=== PATIENT | female | born 1990 | race Caucasian/White ===

== ENCOUNTER 2017-04-02 11:08 | Emergency (ER) | payer MEDICAID ==
[2017-04-02 11:35] VITALS: BP 136/85
--- NOTE | 2017-04-02 11:55 | RAD ---
Indication: Right thumb injury. 3 views of the right thumb demonstrates question of a small volar plate fracture proximal end of the distal phalanx. No other fractures are noted. IMPRESSION: There is suggestion of a fracture at the volar plate of the interphalangeal joint which is indeterminate.
--- NOTE | 2017-04-02 12:17 | UC ---
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 TODAY BRUISING, SWELLING AND PAIN WITH MOVEMENT. - History Of Current Complaint Chief Complaint: UCUpperExtremity Stated Complaint: THUMB INJURY Time Seen by Provider: 04/02/17 11:30 Hx Obtained From: Patient Hx Last Menstrual Period: one week ago Onset/Duration: Sudden Onset, Lasting Days, Still Present, Worse Since - TODAY Severity Initially: Mild Severity Currently: Moderate Character Of Pain: Dull, Aching Aggravating Factor(s): Movement, Flexion, Extension Alleviating: Nothing Associated Signs And Symptoms: Positive: Swelling, Bruising - Allergies/Home Medications Allergies/Adverse Reactions: Allergies Allergy/AdvReac Type Severity Reaction Status Date / Time Green Dye Allergy Rash Verified 04/02/17 11:27 Nickel Allergy Rash Verified 04/02/17 11:27 Penicillins [PCN] Allergy Rash Verified 04/02/17 11:27 CILLINS Allergy Unknown Rash Uncoded 04/02/17 11:27 seasonal Allergy Congestion Uncoded 04/02/17 11:27 PMH/Surg Hx/FS Hx/Imm Hx Previously Healthy: Yes Other History Of: Negative For: HIV, Hepatitis B, Hepatitis C, Anticoagulant Therapy - Surgical History Surgical History: Yes Surgery Procedure, Year, and Place: oral surgery 2010? - Family History Known Family History: Positive: None, Cardiac Disease - family hx of [place] before 50 years of age - Social History Occupation: Employed Full-time Lives: With Family Alcohol Use: Rare Alcohol Amount: 1 glass of wine - once a month Substance Use Type: Excessive Caffeine Substance Use Comment - Amount & Last Used: 2 cups of coffee/day, 3-4 pepsie's a day Smoking Status (MU): Never Smoked Tobacco Review of Systems Constitutional: Negative Skin: Bruising - RIGHT THUMB Eyes: Negative ENT: Negative Respiratory: Negative Cardiovascular: Negative Gastrointestinal: Negative Genitourinary: Negative Motor: Negative Musculoskeletal: Arthralgia, Myalgia Neurological: Negative Psychological: Negative All Other Systems Reviewed And Are Negative: Yes Physical Exam Triage Information Reviewed: Yes Appearance: Well-Appearing, No Pain Distress, Well-Nourished Vital Signs: Initial Vital Signs Temp 98.9 F 04/02/17 11:23 Pulse 90 04/02/17 11:23 Resp 12 04/02/17 11:23 BP 136/85 04/02/17 11:23 Pulse Ox 99 04/02/17 11:23 Vital Signs Reviewed: Yes Eye Exam: Normal ENT Exam: Normal Dental Exam: Normal Neck exam: Normal Neck: Positive: Supple, Nontender, No Lymphadenopathy Respiratory Exam: Normal Respiratory: Positive: Chest non-tender, Lungs clear, Normal breath sounds, No respiratory distress Cardiovascular Exam: Normal Cardiovascular: Positive: RRR, No Murmur, Pulses Normal Abdominal Exam: Normal Musculoskeletal: Positive: Strength Limited @ - RIGHT THUMB FLEXION, ROM Limited @ - RIGHT THUMB FLEXION, Edema @ - RIGHT THUMB Neurological Exam: Normal Psychological Exam: Normal Skin Exam: Normal Hand/Wrist Course/Dx - Differential Dx/Diagnosis Differential Diagnosis/HQI/PQRI: Fracture Provider Diagnoses: CLOSED RIGHT THUMB FRACTURE OF VOLAR PLATE OF PROXIMAL END OF DISTAL PHALANX Discharge - Discharge Plan Condition: Stable Disposition: HOME Patient Education Materials: Finger Fracture (ED) Forms: *Work Release Referrals: Gabe Boudreaux MD [Medical Doctor] - Tami Nieto NP [Primary Care Provider] -
== END 2017-04-02 12:16 | disposition home or self-care (01) ==
LOC: UCEAST 11:08
DX: S62.524A Nondisplaced fracture of distal phalanx of right thumb, initial encounter for closed fracture (principal); W19.XXXA Unspecified fall, initial encounter; Y93.51 Activity, roller skating (inline) and skateboarding; Y92.9 Unspecified place or not applicable; Z88.0 Allergy status to penicillin
CPT/HCPCS: 99212; G0463

== ENCOUNTER 2017-06-05 19:19 | Emergency (ER) | payer OTHER ==
[2017-06-05 19:49] VITALS: BP 125/73
--- NOTE | 2017-06-05 20:54 | UC ---
Skin Complaint HPI - HPI Summary HPI Summary: FOUR WEEKS OF ITCHY RASH SPREADING FROM FINGERS AND HANDS TO ELBOWS, TO NECK, TO ANKLES AND FEET, NOW TO TORSO. WORKS WITH UNHYGIENIC CARS PATIENTS. - History of Current Complaint Chief Complaint: UCSkin Time Seen by Provider: 06/05/17 19:49 Stated Complaint: RASH Hx Obtained From: Patient Hx Last Menstrual Period: 05/22/17 Onset/Duration: Gradual Onset, Lasting Weeks, Still Present, Worse Since - PROGRESSIVE Skin Exposure Onset/Duration: Weeks Ago Onset Severity: Mild Current Severity: Moderate Pain Intensity: 0 Pain Scale Used: 0-10 Numeric Location: Generalized Character: Pruritus, Redness, Raised Aggravating Factor(s): Nothing Alleviating Factor(s): Nothing Associated Signs & Symptoms: Positive: Negative Related History: Insect Bite/Sting, Possible Reaction to: Environmental Exposure - Allergy/Home Medications Allergies/Adverse Reactions: Allergies Allergy/AdvReac Type Severity Reaction Status Date / Time Green Dye Allergy Rash Verified 06/05/17 19:48 Nickel Allergy Rash Verified 06/05/17 19:48 Penicillins [PCN] Allergy Rash Verified 06/05/17 19:48 CILLINS Allergy Unknown Rash Uncoded 04/02/17 11:27 seasonal Allergy Congestion Uncoded 04/02/17 11:27 Home Medications: Home Medications Amphetamine/Dextroamph ER(NF) [Adderal XR (NF)] 10 mg PO DAILY 06/05/17 [ History Confirmed 06/05/17] Norethindrone (Contraceptive) [Norethindrone] 0.35 mg PO DAILY 06/05/17 [ History Confirmed 06/05/17] Review of Systems Constitutional: Negative Skin: Rash Eyes: Negative ENT: Negative Respiratory: Negative Cardiovascular: Negative Gastrointestinal: Negative Genitourinary: Negative Motor: Negative Neurovascular: Negative Musculoskeletal: Negative Neurological: Negative Psychological: Negative Is Patient Immunocompromised?: No All Other Systems Reviewed And Are Negative: Yes PMH/Surg Hx/FS Hx/Imm Hx Previously Healthy: Yes Other History Of: Negative For: HIV, Hepatitis B, Hepatitis C, Anticoagulant Therapy - Surgical History Surgical History: Yes Surgery Procedure, Year, and Place: oral surgery. TUBAL LIGATION - Family History Known Family History: Positive: None, Cardiac Disease - family hx of [place] before 50 years of age - Social History Occupation: Employed Full-time Lives: With Family Alcohol Use: None Alcohol Amount: 1 glass of wine - once a month Substance Use Type: None Substance Use Comment - Amount & Last Used: 2 cups of coffee/day, 3-4 pepsie's a day Smoking Status (MU): Never Smoked Tobacco Physical Exam Triage Information Reviewed: Yes Appearance: Well-Appearing, No Pain Distress, Well-Nourished Vital Signs: Initial Vital Signs Temp 97.7 F 06/05/17 19:43 Pulse 80 06/05/17 19:43 Resp 16 06/05/17 19:43 BP 125/73 06/05/17 19:43 Pulse Ox 100 06/05/17 19:43 Vital Signs Reviewed: Yes Eye Exam: Normal ENT Exam: Normal Dental Exam: Normal Neck exam: Normal Neck: Positive: Supple, Nontender Respiratory Exam: Normal Respiratory: Positive: Chest non-tender, Lungs clear, Normal breath sounds, No respiratory distress Cardiovascular Exam: Normal Cardiovascular: Positive: RRR Abdominal Exam: Normal Musculoskeletal Exam: Normal Neurological Exam: Normal Psychological Exam: Normal Skin: Positive: rashes Course/Dx - Differential Diagnoses - Skin Complaint Differential Diagnoses: Allergic Reaction, Cellulitis, Contact Dermatitis, Drug Rash, Eczema, MRSA, Poison [place], Poison [place], Scabies, Systemic Illness, Tinea, Urticaria - Diagnoses Provider Diagnoses: SCABIES Discharge - Discharge Plan Condition: Stable Disposition: HOME Prescriptions: Permethrin [Elimite] 5 % EX SEE INSTRUCTIONS #1 cre Patient Education Materials: Scabies (ED) Referrals: Ericka Liao [Medical Doctor] - Tami Nieto NP [Primary Care Provider] - Additional Instructions: BENADRYL 50mg PO TID FOR FIVE DAYS
== END 2017-06-05 20:36 | disposition home or self-care (01) ==
LOC: UCEAST 19:19
DX: B86 Scabies (principal)
CPT/HCPCS: 99212; G0463

== ENCOUNTER 2017-11-12 13:04 | Emergency (ER) | payer OTHER ==
[2017-11-12 13:17] VITALS: BP 127/87
--- NOTE | 2017-11-12 13:32 | ED ---
Back Pain - HPI Summary HPI Summary: 27F presents with back pain for the past couple days. She states she slept wrong and developed the pain. She fell asleep in a chair and developed pain afterwards. She denies any numbness or tingling. She denies any weakness. She is able to ambulate. She has been taking Tylenol and placing icy on it without relief. She does have occasional back pain but never in this location. She denies any known injury. - History of Current Complaint Chief Complaint: UCBackPain Stated Complaint: BACK PAIN Time Seen by Provider: 11/12/17 13:23 Hx Last Menstrual Period: 10/31/17 Pain Intensity: 6 - Allergies/Home Medications Allergies/Adverse Reactions: Allergies Allergy/AdvReac Type Severity Reaction Status Date / Time nickel Allergy Rash Verified 11/12/17 13:19 Penicillins Allergy Rash Verified 11/12/17 13:19 green dye Allergy Rash Uncoded 11/12/17 13:19 seasonal Allergy Congestion Uncoded 11/12/17 13:19 Home Medications: Home Medications Acetaminophen TAB* [Tylenol TAB*] 1,000 mg PO ONCE 11/12/17 [History Confirmed 11/12/17] Nitrofurantoin Macrocrystals* [Macrodantin*] 1 tab PO BID 11/12/17 [History Confirmed 11/12/17] PMH/Surg Hx/FS Hx/Imm Hx Endocrine/Hematology History: Denies: Hx Anticoagulant Therapy, Hx Diabetes, Hx Thyroid Disease Cardiovascular History: Reports: 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, often causes chest pain/pressure, Other Cardiovascular Problems/Disorders - PROLAPSED MITRO VALVE Denies: Hx Congestive Heart Failure, Hx Deep Vein Thrombosis, Hx Hypertension , Hx Myocardial Infarction, Hx Pacemaker/ICD Respiratory History: Reports: Hx Asthma - cold air induced asthma Denies: Hx Chronic Obstructive Pulmonary Disease (COPD), Hx Lung Cancer GI History: Denies: Hx Gall Bladder Disease, Hx Gastrointestinal Bleed, Hx Ulcer, Hx Urosepsis History: Reports: Other Problems/Disorders - many UTI's late teens and early 20's Denies: Hx Kidney Stones, Hx Renal Disease Musculoskeletal History: Reports: Other Musculoskeletal History - reports hip pain since childbirth in 2013 Sensory History: Denies: Hx Contacts or Glasses, Hx Hearing Aid Opthamlomology History: Denies: Hx Contacts or Glasses Neurological History: Reports: Hx Migraine - uses OTC pain control, or goes to ER for Toradol Denies: Hx Dementia, Hx Seizures, Hx Transient Ischemic Attacks (TIA) Psychiatric History: Denies: Hx Anxiety, Hx Depression, Hx Schizophrenia, Hx Bipolar Disorder - Surgical History Surgery Procedure, Year, and Place: oral surgery. TUBAL LIGATION Hx Anesthesia Reactions: No Infectious Disease History: No Infectious Disease History: Denies: Hx Clostridium Difficile, Hx Hepatitis, Hx Human Immunodeficiency Virus (HIV), Hx of Known/Suspected MRSA, Hx Shingles, Hx Tuberculosis, History Other Infectious Disease, Traveled Outside the [place] in Last 30 Days - Family History Known Family History: Positive: None, Cardiac Disease - family hx of [place] before 50 years of age - Social History Alcohol Use: Rare Alcohol Amount: 1 glass of wine - once a month Substance Use Type: Reports: None Substance Use Comment - Amount & Last Used: 2 cups of coffee/day, 3-4 pepsie's a day Smoking Status (MU): Never Smoked Tobacco Review of Systems Negative: Fever Negative: Chest Pain Negative: Shortness Of Breath Positive: Myalgia - back pain All Other Systems Reviewed And Are Negative: Yes Physical Exam Triage Information Reviewed: Yes Vital Signs On Initial Exam: Initial Vitals Temp Pulse Resp BP Pulse Ox 98.4 F 96 12 127/87 99 11/12/17 13:14 11/12/17 13:14 11/12/17 13:14 11/12/17 13:14 11/12/17 13:14 Vital Signs Reviewed: Yes Appearance: Positive: Well-Appearing Skin: Positive: Warm, Dry Head/Face: Positive: Normal Head/Face Inspection Eyes: Positive: Normal, Conjunctiva Clear Respiratory/Lung Sounds: Positive: Clear to Auscultation, Breath Sounds Present Cardiovascular: Positive: Normal, RRR Abdomen Description: Positive: Nontender, Soft Bowel Sounds: Positive: Present Musculoskeletal: Positive: Limited @ - back due to pain, Other - tenderness left side of back at L1, no midline tenderness, neg SLR, sensation grossly intact Neurological: Positive: Reflexes Intact - patella Psychiatric: Positive: Normal Diagnostics - Vital Signs Vital Signs Temp Pulse Resp BP Pulse Ox 11/12/17 13:14 98.4 F 96 12 127/87 99 - Laboratory Lab Statement: Any lab studies that have been ordered have been reviewed, and results considered in the medical decision making process. Back Pain Course/Dx - Course Course Of Treatment: 27F presents with back pain for the past couple days. She states she slept wrong and developed the pain. She fell asleep in a chair and developed pain afterwards. She denies any numbness or tingling. She denies any weakness. She is able to ambulate. She has been taking Tylenol and placing icy on it without relief. She does have occasional back pain but never in this location. She denies any known injury. on exam has tenderness left side of back, no midline tenderness, neurovascular intact. normal gait. will treat with muscle relaxer, steriod, and lidocaine patch. will have follow up with primary as blood pressure is pre-htn. patient understand and agrees with plan. - Diagnoses Differential Diagnosis/HQI/PQRI: Positive: Herniated Disc, Strain, Sprain Provider Diagnoses: Back pain Discharge - Sign-Out/Discharge Documenting (check all that apply): Discharge - Discharge Plan Condition: Good Disposition: HOME Prescriptions: Cyclobenzaprine TAB* [Flexeril 10 MG TAB*] 10 mg PO TID PRN #21 tab PRN Reason: Pain Lidocaine PATCH 5%* [Lidoderm 5% Patch*] 1 patch TRANSDERM DAILY #5 patch methylPREDNISolone [Medrol Dosepak 4 MG*] 4 mg PO .SEE CHELSEY INSTRUCTION #1 packet Patient Education Materials: Back Pain (ED) Forms: *Work Release Referrals: Tami Nieto NP [Primary Care Provider] - Additional Instructions: Follow directions on package for Medrol pack Take muscle relaxers three times a day Apply lidocaine patches to area for up to 12 hours in one 24 hour period Use ibuprofen or Tylenol for pain every 6 hours ice/heat area, move as much as possible Follow up with primary within 5 days Return to ED if develop any new or worsening symptoms - Billing Disposition and Condition Condition: GOOD Disposition: HOME
== END 2017-11-12 13:49 | disposition home or self-care (01) ==
LOC: UCEAST 13:04
DX: M54.9 Dorsalgia, unspecified (principal); I34.1 Nonrheumatic mitral (valve) prolapse; J45.909 Unspecified asthma, uncomplicated; Z87.440 Personal history of urinary (tract) infections; G43.909 Migraine, unspecified, not intractable, without status migrainosus; Z88.0 Allergy status to penicillin
CPT/HCPCS: 99212; G0463

== ENCOUNTER 2017-12-16 18:45 | Emergency (ER) | payer OTHER ==
[2017-12-16] MEDS ORDERED: Hydrocodone/Acetamin 10/325 1 TAB PO PRN (19:30)
[2017-12-16] MEDS ORDERED: Nitrofurantoin Macrocrystals* 50 MG CAP PO ONE (19:31)
[2017-12-16] MEDS ORDERED: HYDROcodone/ACETAMIN 5-325 MG* 1 TAB PO ONE (19:34)
[2017-12-16] MEDS ORDERED: Ondansetron ODT TAB* 4 MG PO ONE (19:36)
[2017-12-16] MEDS ORDERED: Ondansetron ODT TAB* 4 MG ONE (19:38)
--- NOTE | 2017-12-16 19:43 | UC ---
Complaint Female HPI - HPI Summary HPI Summary: c/o right flank pain radiating to her abdomen and pelvic area starting earlier today, with bloody urine and burning sensation when voiding. States pain has been migrating downward. Denies fever or previous history of urolithiasis - History Of Current Complaint Chief Complaint: UCGU Stated Complaint: BLOOD IN URINE, PAIN W/ CHILLS Time Seen by Provider: 12/16/17 18:49 Hx Obtained From: Patient Hx Last Menstrual Period: [id number] ?: No Onset/Duration: Sudden Onset, Lasting Hours Timing: Constant Severity Initially: Severe Severity Currently: Severe Pain Intensity: 9 Character: Burning, Tearing, Colicy Aggravating Factor(s): Movement, Urination Alleviating Factor(s): Position Associated Signs And Symptoms: Positive: Back Pain, Nausea - Risk Factors Ectopic Risk Factor: Negative - Allergies/Home Medications Allergies/Adverse Reactions: Allergies Allergy/AdvReac Type Severity Reaction Status Date / Time nickel Allergy Rash Verified 12/16/17 19:01 Penicillins Allergy Rash Verified 12/16/17 19:01 seasonal Allergy Congestion Uncoded 12/16/17 19:01 PMH/Surg Hx/FS Hx/Imm Hx Previously Healthy: Yes Other History Of: Negative For: HIV, Hepatitis B, Hepatitis C, Anticoagulant Therapy - Surgical History Surgical History: Yes Surgery Procedure, Year, and Place: oral surgery. TUBAL LIGATION - Family History Known Family History: Positive: None, Cardiac Disease - family hx of [place] before 50 years of age - Social History Alcohol Use: Rare Alcohol Amount: 1 glass of wine - once a month Substance Use Type: None Substance Use Comment - Amount & Last Used: 2 cups of coffee/day, 3-4 pepsie's a day Smoking Status (MU): Never Smoked Tobacco Review of Systems Constitutional: Negative Genitourinary: Dysuria, Hematuria, Frequency All Other Systems Reviewed And Are Negative: Yes Physical Exam Triage Information Reviewed: Yes Appearance: Pain Distress, Obese Vital Signs: Initial Vital Signs Temp 97.9 F 12/16/17 18:53 Pulse 108 12/16/17 18:53 Resp 18 12/16/17 18:53 BP 126/81 12/16/17 18:53 Pulse Ox 100 12/16/17 18:53 Vital Signs Reviewed: Yes Eyes: Positive: Conjunctiva Clear ENT: Positive: Hearing grossly normal Neck: Positive: Supple, Nontender, No Lymphadenopathy Respiratory: Positive: Chest non-tender, Lungs clear, Normal breath sounds, No respiratory distress Cardiovascular: Positive: RRR, No Murmur, Pulses Normal, Brisk Capillary Refill Abdomen Description: Positive: No Organomegaly, Soft, CVA Tenderness (R) Bowel Sounds: Positive: Present Complaint Female Dx - Course Course Of Treatment: Recommendation to go [place] [facility] [place] abdomen and pelvis to r/o urolithiasis right side. Contacted [facility] [place] for arrival of [place]. Patient tolerated oral fluids after zofran and pain is controlled with one dose of narco. Prescription of macrobid and tamsulosin sent to pharmacy. - Differential Dx/Diagnosis Provider Diagnoses: CLinical urolithiasis Discharge - Sign-Out/Discharge Documenting (check all that apply): Discharge/Admit/Transfer - Discharge Plan Condition: Improved Disposition: HOME Prescriptions: Nitrofurantoin Macrocrystals* [Macrodantin 100 mg*] 100 mg PO BID 7 Days #14 cap Tamsulosin CAP* [Flomax CAP*] 0.4 mg PO BEDTIME #10 cap Referrals: Tami Nieto NP [Primary Care Provider] - - Billing Disposition and Condition Condition: IMPROVED Disposition: HOME
[2017-12-16 20:31] VITALS: BP 132/80
== END 2017-12-16 20:42 | disposition home or self-care (01) ==
LOC: UCEAST 18:45
DX: N20.9 Urinary calculus, unspecified (principal); M54.5 Low back pain; R11.0 Nausea; R31.9 Hematuria, unspecified; R30.0 Dysuria; R35.0 Frequency of micturition; Z88.0 Allergy status to penicillin
CPT/HCPCS: 81003; 87086; 99212; A9270-GY; G0463

== ENCOUNTER 2017-12-16 20:57 | Emergency (ER) | payer OTHER ==
[2017-12-16] MEDS ORDERED: NS 0.9% 1000 ML* 1,000 ML IV ONE (22:56)
[2017-12-16 22:58] LABS: ABS Basophils 0.1 10^3/ul (0-0.2); ABS Eosinophils 0 10^3/ul (0-0.6); ABS Lymphocytes 2.7 10^3/ul (1.0-4.8); ABS Monocytes 1.2 10^3/ul (0-0.8); ABS Neutrophils 10.8 10^3/ul (1.5-7.7); ABS Nucleated RBC 0 10^3/ul; Eosinophil % 0.2 % (0-6); Hematocrit 41 % (35-47); Hemoglobin 14.2 g/dl (12.0-16.0); Mean Corpuscular HGB Conc 35 g/dl (31-36); Mean Corpuscular Hemoglobin 30 pg (27-31); Mean Corpuscular Volume 87 fL (80-97); Mean Platelet Volume 8.5 um3 (7.4-10.4); Nucleated Red Blood Cells % 0; Platelet Count 172 10^3/ul (150-450); Red Cell Distribution Width 13 % (10.5-15); White Blood Count 14.8 10^3/ul (3.5-10.8)
[2017-12-16 23:17] LABS: Urine Appearance Cloudy; Urine Blood 3+ (Negative); Urine Color Amber; Urine Ketones Trace (Negative); Urine Protein 3+(>=500 mg/dL) (Negative); Urine Specific Gravity 1.031 (1.010-1.030); Urine Urobilinogen Positive (Negative)
--- NOTE | 2017-12-16 23:22 | ED ---
Abdominal Pain/Female - HPI Summary HPI Summary: Patient sent from to ED Complains of right upper quadrant pain, right side pain, suprapubic pain, nausea, increased urinary frequency, increased urinary urge, hematuria, dizziness, chills starting this morning. Patient given hydrocodone, Zofran at . Denies trauma, fever, CP, SOB, cough, sore throat, V /D, vaginal symptoms, change in BM. Denies history of kidney stones. Medical history is endometriosis, PCO as, MVP, asthma. Abdominal/pelvic surgical history is BTL. LMP 12/01 - History of Current Complaint Chief Complaint: EDUrogenitalProblems Stated Complaint: RT FLANK PAIN Time Seen by Provider: 12/16/17 22:23 Hx Obtained From: Patient Hx Last Menstrual Period: [id number] Onset/Duration: Sudden Onset, Lasting Hours Timing: Constant Severity Initially: Mild Severity Currently: Moderate Pain Intensity: 6 Pain Scale Used: 0-10 Numeric Location: Discrete At: RUQ, Suprapubic Radiates: No Radiates to: Flank Character: Sharp Aggravating Factor(s): Nothing Alleviating Factor(s): Nothing Associated Signs and Symptoms: Positive: Dizzy, Back Pain, Urinary Symptoms, Nausea Allergies/Adverse Reactions: Allergies Allergy/AdvReac Type Severity Reaction Status Date / Time nickel Allergy Rash Verified 12/16/17 21:04 Penicillins Allergy Rash Verified 12/16/17 21:04 seasonal Allergy Congestion Uncoded 12/16/17 21:04 PMH/Surg Hx/FS Hx/Imm Hx Endocrine/Hematology History: Denies: Hx Anticoagulant Therapy, Hx Diabetes, Hx Thyroid Disease Cardiovascular History: Reports: 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, often causes chest pain/pressure, Other Cardiovascular Problems/Disorders - PROLAPSED MITRO VALVE Denies: Hx Congestive Heart Failure, Hx Deep Vein Thrombosis, Hx Hypertension , Hx Myocardial Infarction, Hx Pacemaker/ICD Respiratory History: Reports: Hx Asthma - cold air induced asthma Denies: Hx Chronic Obstructive Pulmonary Disease (COPD), Hx Lung Cancer GI History: Denies: Hx Gall Bladder Disease, Hx Gastrointestinal Bleed, Hx Ulcer, Hx Urosepsis History: Reports: Other Problems/Disorders - many UTI's late teens and early 20's Denies: Hx Kidney Stones, Hx Renal Disease Musculoskeletal History: Reports: Other Musculoskeletal History - reports hip pain since childbirth in 2013 Sensory History: Denies: Hx Contacts or Glasses, Hx Hearing Aid Opthamlomology History: Denies: Hx Contacts or Glasses Neurological History: Reports: Hx Migraine - uses OTC pain control, or goes to ER for Toradol Denies: Hx Dementia, Hx Seizures, Hx Transient Ischemic Attacks (TIA) Psychiatric History: Denies: Hx Anxiety, Hx Depression, Hx Schizophrenia, Hx Bipolar Disorder - Surgical History Surgery Procedure, Year, and Place: oral surgery. TUBAL LIGATION Hx Anesthesia Reactions: No Infectious Disease History: No Infectious Disease History: Denies: Hx Clostridium Difficile, Hx Hepatitis, Hx Human Immunodeficiency Virus (HIV), Hx of Known/Suspected MRSA, Hx Shingles, Hx Tuberculosis, History Other Infectious Disease, Traveled Outside the [place] in Last 30 Days - Family History Known Family History: Positive: None, Cardiac Disease - family hx of [place] before 50 years of age - Social History Alcohol Use: Rare Alcohol Amount: 1 glass of wine - once a month Substance Use Type: Reports: None Substance Use Comment - Amount & Last Used: 2 cups of coffee/day, 3-4 pepsie's a day Smoking Status (MU): Never Smoked Tobacco Review of Systems Constitutional: Negative Eyes: Negative ENT: Negative Cardiovascular: Negative Respiratory: Negative Positive: Abdominal Pain, Nausea Positive: burning, dysuria, frequency, flank pain, hematuria, pain, urgency Musculoskeletal: Negative Skin: Negative Neurological: Negative Psychological: Normal All Other Systems Reviewed And Are Negative: Yes Physical Exam - Summary Physical Exam Summary: Abdomen most tender suprapubically. Negative Arriaga's, negative McBurney's point. Positive CVA tenderness right side Triage Information Reviewed: Yes Vital Signs On Initial Exam: Initial Vitals Temp Pulse Resp BP Pulse Ox 97.8 F 83 18 102/79 97 12/16/17 20:59 12/16/17 20:59 12/16/17 20:59 12/16/17 20:59 12/16/17 20:59 Vital Signs Reviewed: Yes Appearance: Positive: Well-Appearing Skin: Positive: Warm Head/Face: Positive: Normal Head/Face Inspection Eyes: Positive: Normal Neck: Positive: Supple Respiratory/Lung Sounds: Positive: Clear to Auscultation Cardiovascular: Positive: Normal Abdomen Description: Positive: CVA Tenderness (R). Negative: McBurney's Point Tenderness Musculoskeletal: Positive: Normal Neurological: Positive: Normal Psychiatric: Positive: Normal AVPU Assessment: Alert - [place] Coma Scale Best Eye Response: 4 - Spontaneous Best Motor Response: 6 - Obeys Commands Best Verbal Response: 5 - Oriented Coma Scale Total: 15 Diagnostics - Vital Signs Vital Signs Temp Pulse Resp BP Pulse Ox 12/16/17 20:59 97.8 F 83 18 102/79 97 - Laboratory Lab Results: Lab Results 12/16/17 12/16/17 Range/Units 22:48 22:55 WBC 14.8 H (3.5-10.8) 10^3/ul RBC 4.70 (4.0-5.4) 10^6/ul Hgb 14.2 (12.0-16.0) g/dl Hct 41 (35-47) % MCV 87 (80-97) fL MCH 30 (27-31) pg MCHC 35 (31-36) g/dl RDW 13 (10.5-15) % Plt Count 172 (150-450) 10^3/ul MPV 8.5 (7.4-10.4) um3 Neut % (Auto) 73.2 (38-83) % Lymph % (Auto) 18.0 L (25-47) % Sanders % (Auto) 8.2 H (0-7) % Eos % (Auto) 0.2 (0-6) % Baso % (Auto) 0.4 (0-2) % Absolute Neuts (auto) 10.8 H (1.5-7.7) 10^3/ul Absolute Lymphs (auto) 2.7 (1.0-4.8) 10^3/ul Absolute Monos (auto) 1.2 H (0-0.8) 10^3/ul Absolute Eos (auto) 0 (0-0.6) 10^3/ul Absolute Basos (auto) 0.1 (0-0.2) 10^3/ul Absolute Nucleated RBC 0 10^3/ul Nucleated RBC % 0 Urine Color Olga Lidia Urine Appearance Cloudy Urine pH 5.0 (5-9) Ur Specific [place] 1.031 H (1.010-1.030) Urine Protein 3+(>=500 mg/dl) A (Negative) Urine Ketones Trace A (Negative) Urine Blood 3+ A (Negative) Urine Nitrate Negative (Negative) Urine Bilirubin Negative (Negative) Urine Urobilinogen Positive A (Negative) Ur Leukocyte Esterase 2+ A (Negative) Urine WBC (Auto) 3+(>20/hpf) A (Absent) Urine RBC (Auto) 3+(>10/hpf) A (Absent) Ur Squamous Epith Cells Present A (Absent) Urine Bacteria Absent (Absent) Urine Glucose Negative (Negative) Result Diagrams: 12/16/17 22:48 12/16/17 22:48 Lab Statement: Any lab studies that have been ordered have been reviewed, and results considered in the medical decision making process. - CT ct ab/pel w/o CT Interpretation: No Acute Changes CT Interpretation Completed By: Radiologist Abdominal Pain Fem Course/Dx - Diagnoses Provider Diagnoses: UTI (urinary tract infection) Discharge - Sign-Out/Discharge Documenting (check all that apply): Discharge/Admit/Transfer - Discharge Plan Condition: Stable Disposition: HOME Prescriptions: Ciprofloxacin HCl [Cipro] 500 mg PO BID 10 Days #20 tablet Patient Education Materials: Urinary Tract Infection in Women (ED) Referrals: Tami Nieto NP [Primary Care Provider] - Additional Instructions: Take Tylenol with ibuprofen for pain. Take antibiotics as directed. Follow-up with primary care. Return to the ED for any new or worsening symptoms - Billing Disposition and Condition Condition: STABLE Disposition: HOME
[2017-12-17] MEDS ORDERED: cefTRIAXone(*) 2 GM in NS 0.9% 100 ML* 100 ML IVPB ONE (00:01)
[2017-12-17 01:39] VITALS: BP 112/76
--- NOTE | 2017-12-17 08:10 | RAD ---
INDICATION: Abdominal pain. COMPARISON: There are no prior studies available for comparison. TECHNIQUE: A CT scan of the abdomen and pelvis was performed without intravenous or oral contrast. Contiguous axial sections were obtained from the lung bases through the symphysis pubis. Images were reconstructed in the coronal and sagittal planes. FINDINGS: The lung bases are clear. No pleural effusion is present. The liver and spleen are within normal limits in size without significant focal abnormality on this noncontrast study. No calcified gallstones are seen. The pancreas appears to be within normal limits in size. The adrenal glands and kidneys are normal in size. No renal calculi or hydronephrosis is seen. There is mild diffuse bladder wall thickening and interstitial stranding around the urinary bladder suggestive of cystitis. The aorta is normal in caliber without significant calcific plaque. No significant enlarged retroperitoneal lymph nodes are seen. The stomach, small and large bowel appear nondistended. The appendix is within normal limits. There is mild descending and sigmoid diverticulosis without evidence for diverticulitis. There is a small periumbilical hernia containing fat. The uterus is retroverted and normal in size. There are bilateral tubal ligation clips present. No free intraperitoneal air or fluid is seen. No significant focal osseous abnormality is seen. The results of this examination were called to Dr. Joyner. IMPRESSION: MILD BLADDER WALL THICKENING AND AN ADJACENT INTERSTITIAL STRANDING SUGGESTIVE OF CYSTITIS.
== END 2017-12-17 01:39 | disposition home or self-care (01) ==
LOC: ED 20:57
DX: N39.0 Urinary tract infection, site not specified (principal); R30.0 Dysuria; R10.84 Generalized abdominal pain; R42 Dizziness and giddiness; M54.9 Dorsalgia, unspecified
CPT/HCPCS: 36415; 74176; 80053; 81003; 81015; 83605; 83690; 84702; 85025; 96365; 99284; J0696

== ENCOUNTER 2019-02-04 10:46 | Emergency (ER) | payer BC, OTHER ==
[2019-02-04 12:36] LABS: Rapid Strep Molecular Negative (Negative)
[2019-02-04] MEDS ORDERED: NS 0.9% 1000 ML** 1,000 ML IV ONE (12:51)
[2019-02-04] MEDS ORDERED: Ketorolac INJ* 30 MG/ML 1 ML VIAL IV PUSH ONE (12:51)
[2019-02-04] MEDS ORDERED: Clindamycin 600 MG/D5W BAG(*) 600 MG/50 ML BAG IV ONE (12:51)
[2019-02-04] MEDS ORDERED: Dexamethasone IV* 4 MG/ML 5 ML VIAL (20 MG) IVPB ONE (12:51)
[2019-02-04] MEDS ORDERED: Clindamycin 600 MG IVPREMIX(* 600 MG/50 ML SDV IV ONE (13:00)
--- NOTE | 2019-02-04 13:00 | ED ---
Throat Pain/Nasal Congestion - HPI Summary HPI Summary: Patient is a 28-year-old female presenting to the ED with Pain, exudates and swelling 4 days. She states the symptoms have been worsening. She is a history of strep throat, she states approximately 8-10 times in her life. She' s never been offered a tonsillectomy. She endorses fevers, sweats, chills. Denies any abdominal pain. Denies any rhinorrhea or ear pain. She denies any recent sick contacts. No history of peritonsillar abscess. Patient is otherwise healthy, nonsmoker. - History of Current Complaint Chief Complaint: EDThroatPain Time Seen by Provider: 02/04/19 11:48 Hx Obtained From: Patient Onset/Duration: Sudden Onset Severity: Moderate Associated Signs And Symptoms: Positive: Dysphagia. Negative: Drooling, Hoarseness, Sinus Discomfort, Nasal Discharge - Epiglottits Risk Factors Epiglottis Risk Factors: Negative - Allergies/Home Medications Allergies/Adverse Reactions: Allergies Allergy/AdvReac Type Severity Reaction Status Date / Time nickel Allergy Rash Verified 02/04/19 10:51 Penicillins Allergy Rash Verified 02/04/19 10:51 seasonal Allergy Congestion Uncoded 02/04/19 10:51 Home Medications: Home Medications Clindamycin Cap(NF) [Clindamycin Cap 300 mg Cap(NF)] 1 tab PO TID 02/04/19 [ History Confirmed 02/04/19] PMH/Surg Hx/FS Hx/Imm Hx Previously Healthy: Yes Endocrine/Hematology History: Denies: Hx Anticoagulant Therapy, Hx Diabetes, Hx Thyroid Disease Cardiovascular History: Reports: 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, often causes chest pain/pressure, Other Cardiovascular Problems/Disorders - PROLAPSED MITRO VALVE Denies: Hx Congestive Heart Failure, Hx Deep Vein Thrombosis, Hx Hypertension , Hx Myocardial Infarction, Hx Pacemaker/ICD Respiratory History: Reports: Hx Asthma - cold air induced asthma Denies: Hx Chronic Obstructive Pulmonary Disease (COPD), Hx Lung Cancer GI History: Denies: Hx Gall Bladder Disease, Hx Gastrointestinal Bleed, Hx Ulcer, Hx Urosepsis History: Reports: Other Problems/Disorders - many UTI's late teens and early 20's Denies: Hx Kidney Stones, Hx Renal Disease Musculoskeletal History: Reports: Other Musculoskeletal History - reports hip pain since childbirth in 2013 Sensory History: Denies: Hx Contacts or Glasses, Hx Hearing Aid Opthamlomology History: Denies: Hx Contacts or Glasses Neurological History: Reports: Hx Migraine - uses OTC pain control, or goes to ER for Toradol Denies: Hx Dementia, Hx Seizures, Hx Transient Ischemic Attacks (TIA) Psychiatric History: Denies: Hx Anxiety, Hx Depression, Hx Schizophrenia, Hx Bipolar Disorder - Surgical History Surgery Procedure, Year, and Place: oral surgery. TUBAL LIGATION Hx Anesthesia Reactions: No - Immunization History Hx Pertussis Vaccination: No Immunizations Up to Date: Yes Infectious Disease History: No Infectious Disease History: Denies: Hx Clostridium Difficile, Hx Hepatitis, Hx Human Immunodeficiency Virus (HIV), Hx of Known/Suspected MRSA, Hx Shingles, Hx Tuberculosis, History Other Infectious Disease, Traveled Outside the [place] in Last 30 Days - Family History Known Family History: Positive: None, Cardiac Disease - family hx of [place] before 50 years of age - Social History Occupation: Employed Full-time Lives: With Family Alcohol Use: Rare Alcohol Amount: 1 glass of wine - once a month Hx Substance Use: No Substance Use Type: Reports: None Substance Use Comment - Amount & Last Used: 2 cups of coffee/day, 3-4 pepsie's a day Smoking Status (MU): Never Smoked Tobacco Review of Systems Negative: Fever, Chills, Fatigue, Skin Diaphoresis Positive: Sore Throat. Negative: Dental Pain, Ear Ache, Nasal Discharge Negative: Palpitations, Chest Pain Negative: Shortness Of Breath, Cough Negative: Arthralgia, Myalgia Skin: Negative Neurological: Negative All Other Systems Reviewed And Are Negative: Yes Physical Exam Triage Information Reviewed: Yes Vital Signs On Initial Exam: Initial Vitals Temp Pulse Resp BP Pulse Ox 97.7 F 100 17 132/94 99 02/04/19 10:48 02/04/19 10:48 02/04/19 10:48 02/04/19 10:48 02/04/19 10:48 Vital Signs Reviewed: Yes Appearance: Positive: Well-Appearing, Well-Nourished Skin: Positive: Warm, Skin Color Reflects Adequate Perfusion Head/Face: Positive: Normal Head/Face Inspection Eyes: Positive: EOMI, Conjunctiva Clear ENT: Positive: Pharyngeal erythema, Tonsillar swelling, Tonsillar exudate, Uvula midline. Negative: Nasal drainage, Trismus, Muffled voice, Hoarse voice, Dental tenderness, Sinus tenderness Neck: Positive: Supple, No Lymphadenopathy Respiratory/Lung Sounds: Positive: Clear to Auscultation, Breath Sounds Present Cardiovascular: Positive: RRR, Pulses are Symmetrical in both Upper and Lower Extremities Musculoskeletal: Positive: Strength/ROM Intact Neurological: Positive: Sensory/Motor Intact, Alert, Oriented to Person Place, Time Psychiatric: Positive: Affect/Mood Appropriate Diagnostics - Vital Signs Vital Signs Temp Pulse Resp BP Pulse Ox 02/04/19 10:48 97.7 F 100 17 132/94 99 - Laboratory Lab Results: Lab Results 02/04/19 Range/Units 12:04 Group A Strep Rapid Negative (Negative) Result Diagrams: 02/04/19 13:11 02/04/19 13:11 Lab Statement: Any lab studies that have been ordered have been reviewed, and results considered in the medical decision making process. EENT Course/Dx - Course Course Of Treatment: On physical examination, pharyngeal erythema with bilateral enlarged tonsillar and tonsillar exudates. Airway patent. Uvula midline. No evidence of a peritonsillar abscess. No evidence of retropharyngeal abscess. No muffled voice, drooling or stridor noted. Patient' s immunizations are up-to-date. Strep swab obtained yesterday and negative, this was repeated today and was also negative. Patient endorses difficulty with swallowing and pain with swallowing. She is controlling her secretions well. Patient is given 10 mg Decadron, 1 L normal saline, 600 mg IV clindamycin , 30 mg IV Toradol. This was good improvement. Patient states she feels her symptoms have improved and is tolerating swallowing much better. She will remain on her 300 mg 3 times daily 10 days dose of clindamycin given to her yesterday by PCP. - Differential Diagnoses Differential Diagnoses: Tonsilitis, Other - Pharyngitis, tonsillitis, peritonsillar abscess, bacterial vs. viral tonsillitis - Diagnoses Provider Diagnoses: Tonsillitis Discharge - Sign-Out/Discharge Documenting (check all that apply): Patient Departure Patient Received Moderate/Deep Sedation with Procedure: No - Discharge Plan Condition: Stable Disposition: HOME Prescriptions: Ketorolac TAB * [Toradol TAB *] 10 mg PO Q6H #16 tab predniSONE TAB* [Deltasone TAB*] 50 mg PO DAILY #4 tab MDD 1 Patient Education Materials: Tonsillitis (ED) Forms: *Work Release Referrals: Aroldo Merchant MD [Medical Doctor] - Tami Nieto NP [Primary Care Provider] - Additional Instructions: Continue taking clindamycin as prescribed Prednisone once daily in the morning 4 days, start this medication tomorrow Toradol 4 times daily for any discomfort and inflammation Your next dose of Toradol is at 5pm - Billing Disposition and Condition Condition: STABLE Disposition: Home
[2019-02-04 13:18] LABS: ABS Lymphocytes 1.1 10^3/ul (1.0-4.8); ABS Neutrophils 6.3 10^3/ul (1.5-7.7); Hematocrit 41 % (35-47); Hemoglobin 14.3 g/dL (12.0-16.0); Lymphocyte % 12.9 %; Mean Corpuscular HGB Conc 35 g/dL (31-36); Mean Corpuscular Hemoglobin 30 pg (27-31); Mean Corpuscular Volume 88 fL (80-97); Mean Platelet Volume 7.4 fL (7.4-10.4); Platelet Count 144 10^3/uL (150-450); Red Cell Distribution Width 13 % (10-15); White Blood Count 8.3 10^3/uL (3.5-10.8)
[2019-02-04 13:36] LABS: Albumin 3.9 g/dL (3.2-5.2); Albumin/Globulin Ratio 1.1 (1-3); BUN/Creatinine Ratio 14.5 (8-20); C Reactive Protein 138.02 mg/L (<8.01); Calcium 9.1 mg/dL (8.6-10.3); EGFR African American 137.7 (>60); EGFR Non-African American 113.8 (>60); Globulin 3.6 g/dL (2-4); Potassium 3.8 mmol/L (3.5-5.0); Total Bilirubin 0.6 mg/dL (0.2-1.0); Total Protein 7.5 g/dL (6.4-8.9)
[2019-02-04 14:45] VITALS: BP 116/76
== END 2019-02-04 14:44 | disposition home or self-care (01) ==
LOC: ED 10:46
DX: J03.90 Acute tonsillitis, unspecified (principal); R13.10 Dysphagia, unspecified; Z88.0 Allergy status to penicillin; Z86.79 Personal history of other diseases of the circulatory system
CPT/HCPCS: 36415; 80053; 83605; 85025; 86140; 87651; 96361; 96374; 96375; 99282; J1100; J1885